=== PATIENT | male | born 1970 | race Caucasian/White ===

== ENCOUNTER 2017-09-21 13:47 | Emergency (ER) | payer SELFPAY ==
--- NOTE | 2017-09-21 14:07 | EDM.PDOC ---
ED HPI GENERAL MEDICAL PROBLEM - General Chief Complaint: Back Pain or Injury Stated Complaint: BACK PAIN Time Seen by Provider: 09/21/17 14:07 Source of Information: Reports: Patient History Limitations: Reports: No Limitations - History of Present Illness INITIAL COMMENTS - FREE TEXT/NARRATIVE: 47-year-old male presents to the ED with acute right low back pain which she's had for over a week. No specific injuries or trauma to the area. Patient states he was getting in the back of a truck when he developed pain in his back and it has persisted and in fact worsened since that timeframe has seen the chiropractor twice in the last week with may be minimal improvement. Tried a TENS machine 2 and it seemed to help for only a short period of time. He's been taking Motrin like a candy and believes that they helped initially but not recently. Denies any problems with his bowel or bladder function. There is no pain radiating into his buttock or hip. Radiate up his back towards his kidney. Onset: Gradual Onset Date: 09/14/17 Duration: Week(s): (One week) Location: Reports: Back (Right low back pain) Quality: Reports: Ache, Sharp, Stabbing (Much worse with movement.), Other Severity: Moderate (With movement to severe) Improves with: Reports: Rest Worsens with: Reports: Movement Context: Denies: Activity, Exercise, Lifting, Sick Contact, Trauma, Other Associated Symptoms: Denies: No Other Symptoms, Confusion, Chest Pain, Cough, cough w sputum, Diaphoresis, Fever/Chills, Headaches, Loss of Appetite, Malaise , Rash, Seizure, Shortness of Breath, Syncope, Weakness Treatments TEAROOM HOSTESS: Reports: NSAIDS Right Lower Back Pain Score (Numeric/FACES): 9 - Related Data Allergies Allergy/AdvReac Type Severity Reaction Status Date / Time No Known Allergies Allergy Verified 09/21/17 13:54 Home Meds: Home Meds Diclofenac Sodium [Voltaren] 50 mg PO TID #30 tab.ec 09/21/17 [Rx] Fexofenadine HCl [Fartun Allergy] 1 dose PO DAILY PRN 09/21/17 [History] oxyCODONE HCl/Acetaminophen [Percocet 5-325 mg Tablet] 1 - 2 each PO Q4H PRN # 20 tablet 05/23/18 [Rx] predniSONE [Deltasone] 20 mg PO ASDIRECTED #18 tablet 09/21/17 [Rx] Past Medical History - Past Surgical History GI Surgical History: Reports: Appendectomy, Cholecystectomy Social & Family History - Family History Family Medical History: Noncontributory - Living Situation & Occupation Living situation: Reports: Occupation: Employed ED ROS GENERAL - Review of Systems Review Of Systems: See Below Constitutional: Denies: Fever, Chills, Malaise, Weakness, Fatigue, Decreased Appetite, Weight Loss HEENT: Reports: No Symptoms Respiratory: Reports: No Symptoms Cardiovascular: Reports: No Symptoms Endocrine: Reports: No Symptoms GI/Abdominal: Reports: No Symptoms : Reports: No Symptoms Musculoskeletal: Reports: Back Pain (He localizes very well to the L1-L2 facet joint on the right side.) Skin: Reports: No Symptoms Neurological: Reports: No Symptoms. Denies: Paresthesia Psychiatric: Reports: No Symptoms, Other Hematologic/Lymphatic: Reports: No Symptoms Immunologic: Reports: No Symptoms ED EXAM, UPPER BACK/NECK PAIN - Physical Exam Exam: See Below Exam Limited By: No Limitations General Appearance: Alert, WD/WN, Moderate Distress (Very limited in his mobility especially sitting up from a chair to stand.) Back Exam: Muscle Spasm (Has paraspinal muscle spasm up to thoracic 6 level on the right side. Maximal point of tenderness is L1-L2 facet joint. No significant pain at L3-L4 L4-L5 or L5-S1 facet joints. Both SI joints are normal as well.) Extremities: Normal Inspection, Normal Range of Motion, Non-Tender, No Pedal Edema Neurologic: No Motor/Sensory Deficits, Alert, Normal Mood/Affect, Oriented x 3 Skin Exam: Normal Color, Warm/Dry Course - Vital Signs Last Recorded V/S: Last Vital Signs Temp 37.4 C 09/21/17 13:56 Pulse 73 09/21/17 13:56 Resp 18 09/21/17 13:56 BP 143/95 H 09/21/17 13:56 Pulse Ox 98 09/21/17 13:56 - Radiology Interpretation Free Text/Narrative:: 47-year-old male presents to the ED for evaluation of persistent right-sided low back pain for over a week. No specific injuries or trauma to the area that he recognizes. Examination shows marked paraspinal muscle spasm on the right side. Examination reveals pain well localized to the L1-L2 facet joint on the right side which is rather atypical. He has seen the chiropractor twice in the last week with minimal to no improvement. Usually facet joints are involved in the lower part of the back. Plan CT of his lumbar spine to be done. - Re-Assessments/Exams Free Text/Narrative Re-Assessment/Exam: 09/21/17 14:43 CT lumbar spine is essentially normal. There is posterior disc bulge at the L3-L4 level but no signs of nerve root entrapment. Depression fractures and facet joints appear normal. Slight atherosclerotic changes appreciated in the posterior wall of the distal aorta. Plan I will place him on Voltaren 50 mg 3 times daily for 10 days prednisone 20 mg twice daily breakfast and supper for 6 days and once daily in the morning for another 6 days to relieve inflammation. Percocet 5/325 milligram tabs one or 2 every 6 hours as needed when he's not at work or driving a motor vehicle primarily to be used at bedtime to aid sleep. Gradual improvement over the next week to 7 days. Failing this physiotherapy program should be instituted Departure - Departure Time of Disposition: 14:44 Disposition: Home, Self-Care 01 Condition: Fair Clinical Impression: Lumbar spine strain Qualifiers: Encounter type: initial encounter Qualified Code(s): S39.012A - Strain of muscle, fascia and tendon of lower back, initial encounter - Discharge Information Prescriptions: Diclofenac Sodium [Voltaren] 50 mg PO TID #30 tab.ec oxyCODONE HCl/Acetaminophen [Percocet 5-325 mg Tablet] 1 - 2 each PO Q4H PRN # 20 tablet PRN Reason: pain relief. predniSONE [Deltasone] 20 mg PO ASDIRECTED #18 tablet Referrals: PCP,Not In Area [Primary Care Provider] - Forms: ED Department Discharge Additional Instructions: Evaluation the emergency room today in regards to acute onset of lower back pain. Back pain started about a week ago with no apparent injuries. Examination reveals pain at the L1-L2 facet joint on the right side as the maximum source of your pain. There is marked over lying muscle spasm. CT of your back we did not reveal any significant abnormalities of the bony architecture. There are multiple posterior disc bulges somewhat circumferential but nothing that is causing nerve root impingement. Plan I will place him on Voltaren 50 mg 3 times daily for the next 10 days. Deltasone 20 mg with breakfast and supper for 6 days then 1 tablet in morning only for another 6 days. Percocet tabs 5/3/25 milligram tabs 1-2 tablets every 6 hours as needed for pain relief primarily at bedtime to help him sleep. He is not to use these tablets while operating a motor vehicle or other machinery. It is not markedly improved in 7 days time I believe he should seek out physiotherapy work hardening program
--- NOTE | 2017-09-21 14:42 | CT ---
CT lumbar spine Technique: Multiple axial sections were obtained from the mid T11 level through the L5-S1 disc. Reconstructed sagittal and coronal images were reviewed. Findings: T11-12: Posterior disc is preserved. No central canal stenosis or neural foraminal stenosis is seen. T12-L1: Posterior disc is preserved. No central canal stenosis or neural foraminal stenosis is seen. L1-2: Posterior disc is preserved. No central canal stenosis or neural foraminal stenosis is seen. L2-3: Minimal circumferential disc bulge is seen. Posterior disc maintains concave margin. No central canal stenosis or neural foraminal stenosis is seen. L3-4: Minimal circumferential disc bulge is seen. Posterior disc maintains planar margin. No central canal stenosis or neural foraminal stenosis is seen. L4-5: Minimal circumferential disc bulge is seen. No central canal stenosis or neural foraminal stenosis is seen. L5-S1: Slight posterior physiologic bulge is seen. No central canal stenosis or neural foraminal stenosis is seen. Mild scattered endplate osteophytes are seen anteriorly. No fracture or subluxation is seen. Impression: 1. Minimal circumferential disc bulging with mild scattered endplate osteophytes. 2. No disc herniation, central canal stenosis or neural foraminal stenosis is seen. Diagnostic code #2
== END 2017-09-21 15:00 | disposition home or self-care (01) ==
LOC: JD.ED 13:47
DX: S39.012A Strain of muscle, fascia and tendon of lower back, initial encounter (principal); Z79.899 Other long term (current) drug therapy; X50.9XXA Other and unspecified overexertion or strenuous movements or postures, initial encounter
CPT/HCPCS: 72131; 72131-26; 99284-25